=== PATIENT | female | born 1970 | race Caucasian/White ===

== ENCOUNTER 2023-12-24 16:42 | Emergency (ER) | payer SELFPAY ==
[~2023-12-24] VITALS: Ht 154.9 cm; Wt 61.2 kg
[2023-12-24 17:06] VITALS: O2SAT 99
[2023-12-24] MEDS: KETOROLAC 30MG/ML VIAL IM ONE (17:30)
[2023-12-24 17:32] LABS: BASOPHILS % 0.1 % (0.0-2.0); DIFFERENTIAL COMMENT 0; EOSINOPHILS % 0.1 % (0.0-5.0); HEMATOCRIT. 41.7 % (36.0-48.0); HEMOGLOBIN. 14.1 g/dL (12.0-16.0); LYMPHOCYTES % 7.3 % (20.0-50.0); MEAN CORPUSCULAR HEMOGLOBIN 26.7 pg (28.0-32.0); MEAN CORPUSCULAR HGB CONC 33.9 g/dL (31.0-37.0); MEAN CORPUSCULAR VOLUME 78.9 fL (81.0-99.0); MEAN PLATELET VOLUME 7.7 fl (7.4-10.4); MONOCYTES % 5.7 % (2.0-8.0); NEUTROPHILS % 86.8 % (40.0-76.0); PLATELET 255 x1000/uL (130-400); RED BLOOD CELL COUNT 5.29 mill/uL (4.2-5.4); WHITE BLOOD COUNT 10.7 x1000/uL (4.5-11.0)
[2023-12-24 17:37] LABS: CHLORIDE 106 mEq/L (98-107); POTASSIUM 4.3 mEq/L (3.5-5.1); SODIUM 138 mEq/L (136-145)
[2023-12-24 17:38] LABS: CARBON DIOXIDE 24 mEq/L (21-32)
[2023-12-24 17:39] LABS: CALCIUM 9.6 mg/dL (8.7-10.4)
[2023-12-24 17:43] LABS: CREATININE 0.5 mg/dL (0.6-1.0); GLUCOSE 125 mg/dL (70-105)
[2023-12-24 17:44] LABS: UREA NITROGEN BLOOD 18 mg/dL (9-23)
[2023-12-24 17:45] LABS: ALANINE AMINOTRANSFERASE 38 IU/L (10-49); ALBUMIN 4.3 g/dL (3.2-4.8); ASPARTATE AMINOTRANSFERASE 21 IU/L (<34)
[2023-12-24 17:46] LABS: BILIRUBIN DIRECT 0.3 mg/dL (<=3.0); BILIRUBIN TOTAL 0.9 mg/dL (0.1-1.0); PROTEIN TOTAL 6.6 g/dL (6.0-8.3)
[2023-12-24 17:49] LABS: CLARITY URINE CLEAR (CLEAR); COLOR URINE YELLOW (YELLOW); GLUCOSE URINE NEGATIVE (NEGATIVE); KETONES URINE NEGATIVE (NEGATIVE); LEUKOCYTE ESTERASE URINE 1+ (NEGATIVE); NITRITE URINE NEGATIVE (NEGATIVE); OCCULT BLOOD URINE NEGATIVE (NEGATIVE); PH URINE 5.5 (4.5-8.0); PROTEIN URINE NEGATIVE (NEGATIVE); SPECIFIC GRAVITY URINE 1.025 (1.005-1.030)
[2023-12-24 18:01] LABS: HCG SCREEN POSITIVE
[2023-12-24 18:04] LABS: BACTERIA URINE 1+; RBC URINE 0-2 /hpf (0-2); SQUAMOUS EPITHELIAL CELL URINE 1+ /lpf (RARE/1+)
[2023-12-24 19:03] LABS: TROPONIN I HIGH SENSITIVITY 4 ng/L (3.0-34)
[2023-12-24] MEDS: ONDANSETRON 4MG ODT PO ONE (19:07)
[2023-12-24] MEDS ORDERED: TOPUD MT (20:26)
[2023-12-24] MEDS ORDERED: CEPH500C2 MT (20:26)
[2023-12-24] MEDS: SODIUM CHLORIDE 0.9% 1,000 ML IV ONE (20:41)
[2023-12-24 21:28] VITALS: BP 128/67; PULSE 105; RESP 20; TEMP 98.5
== END 2023-12-24 21:35 | disposition home or self-care (01) ==
LOC: ER 16:42
DX: R10.13 Epigastric pain (principal); D25.9 Leiomyoma of uterus, unspecified; N39.0 Urinary tract infection, site not specified; M32.14 Glomerular disease in systemic lupus erythematosus; Z98.890 Other specified postprocedural states; Z20.822 Contact with and (suspected) exposure to COVID-19
CPT/HCPCS: 99284; 74176; 76830; 76856; 87426; 80076; 80048; 81003; 81025; 84703; 84702; 83690; 85025; 84484; 36415; 93005; Q0162; J1885; J7030